=== PATIENT | male | born 1965 | race Caucasian/White ===

== ENCOUNTER 2020-10-26 12:06 | Emergency (ER) | payer MEDICARE, OTHER ==
[2020-10-26 13:29] LABS: HEMOGLOBIN 13.7 gm/dl (14.0-17.5); RED BLOOD COUNT 5.24 M/UL (4.20-5.50); WHITE BLOOD COUNT 9.2 K/UL (4.5-11.0)
[2020-10-26 13:39] LABS: BUN/CREATININE RATIO 18 (0-10)
== END 2020-10-26 15:00 | disposition home or self-care (01) ==
LOC: ER1 12:06
PROVIDERS: Physician Assistant
DX: R10.9 Unspecified abdominal pain (principal); I11.9 Hypertensive heart disease without heart failure; I25.2 Old myocardial infarction; E11.9 Type 2 diabetes mellitus without complications; Z86.16 Personal history of COVID-19; Z86.718 Personal history of other venous thrombosis and embolism
CPT/HCPCS: 80053; 81001; 83690; 85025; 99284; Q9967

== ENCOUNTER 2021-03-06 16:03 | Emergency (ER) | payer MEDICARE, OTHER ==
[2021-03-06 16:42] LABS: HEMOGLOBIN 13.3 gm/dl (14.0-17.5); RED BLOOD COUNT 4.89 M/UL (4.20-5.50); WHITE BLOOD COUNT 13.6 K/UL (4.5-11.0)
[2021-03-06 17:04] LABS: BUN/CREATININE RATIO 23 (0-10)
[2021-03-06 20:02] LABS: BUN/CREATININE RATIO 22 (0-10)
[2021-03-06] MEDS ORDERED: PHENERGAN 12.12.5 MG PR (23:19)
[2021-03-06] MEDS ORDERED: CARAFATE1 GM/10 ML PO (23:19)
[2021-03-06] MEDS ORDERED: ZOFRAN ODT 4 MG4 MG PO (23:19)
== END 2021-03-06 23:40 | disposition home or self-care (01) ==
LOC: ER1 16:03
PROVIDERS: Physician Assistant; Preventive Medicine Occupational Medicine
DX: K20.90 Esophagitis, unspecified without bleeding (principal); E11.65 Type 2 diabetes mellitus with hyperglycemia; Z20.822 Contact with and (suspected) exposure to COVID-19
CPT/HCPCS: 71045; 80053; 80307; 81001; 82009; 82150; 82550; 82553; 82800; 82962; 83036; 83605; 83690; 83874; 83880; 84484; 85025; 86140; 87086; 93005; 96374; 96375; 96376; 99284; C9113; G0480; J2550; Q9967; U0002